=== PATIENT | female | born 1960 | race Caucasian/White ===

== ENCOUNTER → 2017-08-06 20:03 | Outpatient (CLI) | payer BC | END | disposition home or self-care (01) | LOC: D.MAMMO 14:30 | DX: Z12.31 Encounter for screening mammogram for malignant neoplasm of breast (principal) ==

== ENCOUNTER 2019-03-05 08:10 | Emergency (ER) | payer BC ==
[~2019-03-05] VITALS: Ht 170.2 cm; Wt 57.7 kg
[2019-03-05 08:16] VITALS: Ht 170.2 cm; Wt 57.7 kg
[2019-03-05] MEDS ORDERED: IBUPROFEN800 MG PO (09:32)
[2019-03-05] MEDS ORDERED: ULTRAM50 MG PO (09:32)
[2019-03-05 09:39] VITALS: BP 110/71
== END 2019-03-05 09:39 | disposition home or self-care (01) ==
LOC: D.ER 08:10
DX: M25.562 Pain in left knee (principal); S89.92XA Unspecified injury of left lower leg, initial encounter; W19.XXXA Unspecified fall, initial encounter; Y93.01 Activity, walking, marching and hiking

== ENCOUNTER → 2019-03-10 14:34 | Outpatient (CLI) | payer BC ==
[2019-03-05 08:16] VITALS: BMI 19.9
[~2019-03-10 14:34] MED LIST: IBUPROFEN800 MG PO; ULTRAM50 MG PO
== END | disposition home or self-care (01) ==
LOC: D.MRI 14:34
PROVIDERS: ATTEND Clinical Nurse Specialist Family Health
DX: M25.562 Pain in left knee (principal)

== ENCOUNTER → 2019-04-18 10:35 | Outpatient (CLI) | payer BC ==
[2019-03-05 08:16] VITALS: BMI 19.9
== END | disposition home or self-care (01) ==
LOC: D.RAD 10:35
PROVIDERS: ATTEND Orthopaedic Surgery
DX: M25.562 Pain in left knee (principal)

== ENCOUNTER → 2019-05-16 17:21 | Outpatient (CLI) | payer BC ==
[2019-03-05 08:16] VITALS: BMI 19.9
[2019-05-16 18:22] LABS: CALCIUM 8.7 mg/dL (8.5-10.1); PHOSPHOROUS 4.5 mg/dL (2.5-4.9)
== END | disposition home or self-care (01) ==
LOC: D.LAB 17:21
PROVIDERS: ATTEND Clinical Nurse Specialist Family Health
DX: S82.102A Unspecified fracture of upper end of left tibia, initial encounter for closed fracture (principal)

== ENCOUNTER 2020-07-19 13:30 | Outpatient (CLI) | payer BC ==
[2019-03-05 08:16] VITALS: BMI 19.9
== END 2020-07-19 23:59 | disposition home or self-care (01) ==
LOC: D.MAMMO 13:30
PROVIDERS: ATTEND Nurse Practitioner
DX: R92.2 Inconclusive mammogram (principal)